=== PATIENT | male | born 1995 | race African-American/Black ===

== ENCOUNTER 2020-02-14 19:38 | Emergency (ER) | payer OTHER, MEDICAID ==
[~2020-02-14] VITALS: Ht 170.2 cm; Wt 68.0 kg
[2020-02-14 19:42] VITALS: BP 166/0
[2020-02-14] MEDS ORDERED: IBUPROFEN 600MG TABLET PO ONE (20:45)
== END 2020-02-14 23:07 | disposition left against medical advice (07) ==
LOC: ER 19:38
DX: M25.511 Pain in right shoulder (principal); Z88.0 Allergy status to penicillin; V43.52XA Car driver injured in collision with other type car in traffic accident, initial encounter; Y93.89 Activity, other specified; Y92.488 Other paved roadways as the place of occurrence of the external cause
CPT/HCPCS: 99283

== ENCOUNTER 2022-04-09 21:26 | Emergency (ER) | payer MEDICAID, OTHER ==
[~2022-04-09] VITALS: Ht 177.8 cm; Wt 59.8 kg
[2022-04-10 01:36] LABS: BASOPHILS % 0.6 % (0.0-2.0); EOSINOPHILS % 1.5 % (0.0-5.0); HEMATOCRIT. 40.6 % (42.0-52.0); HEMOGLOBIN. 13.1 g/dL (14.0-18.0); LYMPHOCYTES % 17.6 % (20.0-50.0); MEAN CORPUSCULAR HEMOGLOBIN 25.8 pg (28.0-32.0); MEAN CORPUSCULAR VOLUME 79.9 fL (80.0-94.0); MEAN PLATELET VOLUME 7.3 fl (7.4-10.4); NEUTROPHILS % 73.3 % (40.0-76.0); PLATELET 287 x1000/uL (130-400); RED BLOOD CELL COUNT 5.08 mill/uL (4.7-6.1); RED CELL DISTRIBUTION WIDTH 14.5 % (11.6-14.6)
[2022-04-10 01:42] LABS: CHLORIDE 105 mEq/L (98-107)
[2022-04-10] MEDS ORDERED: SULF500T8 MT (04:45)
[2022-04-10] MEDS ORDERED: PRED10TA23 MT (04:45)
[2022-04-10] MEDS ORDERED: HYDR-4001 MT (04:45)
[2022-04-10 05:47] VITALS: BP 115/75
== END 2022-04-10 05:47 | disposition home or self-care (01) ==
LOC: ER 21:26
DX: R10.30 Lower abdominal pain, unspecified (principal); K50.90 Crohn's disease, unspecified, without complications; Z88.0 Allergy status to penicillin
CPT/HCPCS: 36415; 74176; 80053; 85025; 99284

== ENCOUNTER 2022-04-13 22:12 | Emergency (ER) | payer MEDICAID ==
[~2022-04-13] VITALS: Ht 175.3 cm; Wt 61.0 kg
[~2022-04-13 22:12] MED LIST: HYDR-4001 MT; PRED10TA23 MT; SULF500T8 MT
[2022-04-13 22:44] VITALS: BP 128/48
[2022-04-14 02:17] LABS: CLARITY URINE CLOUDY (CLEAR); COLOR URINE AMBER (YELLOW); SPECIFIC GRAVITY URINE 1.025 (1.005-1.030)
[2022-04-14 02:18] LABS: KETONES URINE NEGATIVE (NEGATIVE); NITRITE URINE NEGATIVE (NEGATIVE); OCCULT BLOOD URINE 3+ (NEGATIVE); PROTEIN URINE 3+ (NEGATIVE)
[2022-04-14 02:19] LABS: LEUKOCYTE ESTERASE URINE 3+ (NEGATIVE)
[2022-04-14] MEDS ORDERED: CIPR500T5 MT (02:22)
== END 2022-04-14 02:37 | disposition home or self-care (01) ==
LOC: ER 22:12
DX: N39.0 Urinary tract infection, site not specified (principal); Z88.0 Allergy status to penicillin; Z76.0 Encounter for issue of repeat prescription
CPT/HCPCS: 81003; 99283

== ENCOUNTER 2025-02-13 10:58 | Emergency (ER) | payer MEDICAID ==
[~2025-02-13] VITALS: Ht 170.2 cm; Wt 69.0 kg
[~2025-02-13 10:58] MED LIST changes: +CIPR-452 MT
[2025-02-13 11:09] VITALS: TEMP 36.7; O2SAT 100
[2025-02-13] MEDS ORDERED: LIDO-53 TP (11:27)
[2025-02-13] MEDS ORDERED: IBUP-2028 MT (11:27)
[2025-02-13] MEDS: ACETAMINOPHEN 325MG TABLET PO ONE (11:37)
[2025-02-13 11:41] VITALS: BP 135/88; PULSE 70; RESP 16; O2SAT 100
== END 2025-02-13 11:42 | disposition home or self-care (01) ==
LOC: ER 10:58
DX: M54.2 Cervicalgia (principal); Z79.899 Other long term (current) drug therapy; Z88.0 Allergy status to penicillin
CPT/HCPCS: 99282